=== PATIENT | male | born 1975 | race Caucasian/White ===

== ENCOUNTER → 2020-09-08 14:36 | Outpatient (BNVA) | payer SELFPAY | PROVIDERS: Visit Provider Registered Nurse Neonatal Intensive Care | DX: Z20.822 Contact with and (suspected) exposure to COVID-19 (principal); J06.9 Acute upper respiratory infection, unspecified | CPT/HCPCS: 87635 ==

== ENCOUNTER 2021-08-02 13:00 | Emergency (ER) | payer SELFPAY ==
[2021-08-02 13:10] VITALS: BP 177/114; PULSE 114; RESP 18; TEMP 36.4; O2SAT 97; BMI 40.4
--- NOTE | 2021-08-02 14:07 | XR_ITS ---
WS: [id number] Exam: XR chest 1V portable [id number] Date/Time of Exam: 08/02/2021 2:10 PM Reason For Exam: chest pain No priors. Findings: The lungs are clear and fully expanded. Costophrenic angles are sharp. No infiltrates. Bronchovascula r relief appears normal. Cardiac silhouette is unremarkable. Bony elements are intact. XR/XR chest 1V portable [id number] IMPRESSION: Unremarkable chest radiograph.
--- NOTE | 2021-08-02 14:07 | ECG_ITS ---
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 Measurements Intervals [place] Rate: 114 P: 41 NE: 165 QRS: 93 QRSD: 94 T: 36 QT: 321 QTc: 443 Interpretive Statements SINUS TACHYCARDIA BORDERLINE RIGHT AXIS DEVIATION [QRS AXIS > 90] PATTERN CONSISTENT WITH PULMONARY DISEASE INTERPRETATION BASED ON A DEFAULT AGE OF 40 YEARS No previous ECG available for comparison Electronically Signed On 08-02-2021 22:29:02 CDT by Bossman Ellis M.D. [id number] f
--- NOTE | 2021-08-02 15:12 | ED_ITS ---
HPI - Chest Pain General: Chief Complaint: Chest Pain Stated Complaint: Sharp abd pain, arm and leg cramps Time Seen by Provider: 08/02/21 14:22 PFSH ED PFSH: Social History Smoking and tobacco status: current every day smoker (chew) Course Vital Signs: Vital signs: Vital Signs Temperature 97.5 F L 08/02/21 13:10 Pulse Rate 114 H 08/02/21 13:10 Respiratory Rate 18 08/02/21 13:10 Blood Pressure 177/114 08/02/21 13:10 Pulse Oximetry 97 08/02/21 13:10 MDM - Chest Pain Lab Data Radiology Impressions Chest X-Ray 08/02/21 14:07 IMPRESSION: Unremarkable chest radiograph. 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
[2021-08-02 15:22] VITALS: RESP 20
[2021-08-02] MEDS: morphine 4 mg/mL SDV 1 mL IVP ×2 (15:22→19:41)
[2021-08-02] MEDS: sodium chloride 0.9% 1,000 ML 999 ML IV (15:23)
[2021-08-02 15:31] LABS: Basophils # 0.1 10^3/uL (0.0-0.1); Basophils % 0.7 %; Eosinophils # 0.1 10^3/uL (0.0-0.8); Eosinophils % 1.1 %; Hematocrit 46.3 % (42.0-52.0); Hemoglobin 16.6 g/dL (11.7-16.6); Lymphocytes # 2.9 10^3/uL (0.8-4.8); Lymphocytes % 21.9 %; Mean Corpuscular HGB Conc 35.9 g/dL (30.0-36.0); Mean Corpuscular Volume 89.4 fl (80-94); Mean Platelet Volume 10.5 fL (7.4-10.4); Monocytes # 1.1 10^3/uL (0.2-0.9); Monocytes % 8.6 %; Neutrophils # 8.77 10^3/uL (1.8-7.7); Nucleated Red Blood Cells % 0 %; Platelet Count 372 10^3/cmm (130-400); Red Blood Count 5.18 10^6/uL (4.1-5.3); Red Cell Distribution Width 13.4 % (12.1-15.1); White Blood Count 13.1 10^3/uL (4.0-10.0)
[2021-08-02 15:43] LABS: Troponin(5th) Baseline 10 ng/L (0-15)
--- NOTE | 2021-08-02 15:56 | W.ED.GENADLT ---
HPI - General Adult General: Chief complaint: Chest Pain Stated complaint: Sharp abd pain, arm and leg cramps Time Seen by Provider: 08/02/21 14:22 History of Present Illness: Patient is a 46-year-old male with no significant past medical history presents emergency room with abdominal cramps and leg cramps. Patient states that yesterday afternoon of 3-4pm he began having upper abdominal cramps lasting for an hour at a time. In addition, patient also reports bilateral thigh cramps lasting for similar period of time. Patient had additional 4 episodes of upper abdominal cramps relating to the lower abdomen. Patient denies any associated nausea/vomiting fever/chills, diarrhea melena/hematochezia. Patient has no prior history of kidney stones, denies any other or testicular complaints at this time. Patient denies any prior abdominal surgeries, cough, runny nose, or sore throat. Earlier today, patient was seen and evaluated at a primary care facility and was told to come to the emergency room for evaluation of his heart. Patient denies any exertional chest pain, short shortness of breath, pleuritic chest pain, leg swelling, fever or chills. Onset: 1 day ago Duration:1 day Location:home Severity:moderate Associated symptoms: Deny chest pain, dyspnea, nausea, rash, palpitations or vomiting Review of Systems Const: Denies: fever(s) or chills Eyes: Denies: change in vision ENMT: Denies: mouth pain Card: Denies: chest pain or palpitations Resp: Denies: dyspnea or non-productive cough GI: Reports: abdominal pain (+abdominal cramps); Denies: nausea, vomiting or diarrhea : Denies: dysuria Musc: Denies: extremity pain Skin/Breast: Denies: rash or new lesions Neuro: Denies: weakness in extremities Psych: Reports: other (Normal mood) Sung/Lymph: Denies: easy bruising PFSH ED PFSH: Social History Smoking and tobacco status: current every day smoker (chew) Physical Exam Const: COMMON NORMALS: alert HENMT: COMMON NORMALS: atraumatic HEAD & SCALP: atraumatic MOUTH: moist mucous membranes not abnormal Eye: COMMON NORMALS: EOMs intact bilaterally and conjunctivae normal CONJUNCTIVA: Yes conjunctivae normal Neck/C-Spine: COMMON NORMALS: full ROM and supple Resp: COMMON NORMALS: normal respiratory effort and clear to auscultation bilaterally AUSCULTATION: clear to auscultation bilaterally Cardio: COMMON NORMALS: regular rate RATE: regular rate GI: COMMON NORMALS: Soft to palpation and non-tender PALPATION: Yes Soft to palpation OTHER: No focal TTP. NO guarding rebound, guarding, rigidity. No CVA tenderness to percussion. Neg Tracey/Neg McBurney's point tenderness, no suprabupic tenderness to palpation. Extremity: COMMON NORMALS: full ROM Neuro: SENSORIUM/ORIENTATION: Yes alert MOTOR EXAM: No Abnormal motor strength present and Other motor observations present (no focal motor deficits) Psych: COMMON NORMALS: speech normal SPEECH: Yes normal speech MOOD & AFFECT: Yes euthymic mood Course Vital Signs: Vital signs: Vital Signs Temperature 97.5 F L 08/02/21 13:10 Pulse Rate 95 08/02/21 18:12 Respiratory Rate 16 08/02/21 19:41 Blood Pressure 120/88 08/02/21 18:12 Pulse Oximetry 95 08/02/21 18:12 MDM - General Adult Medical Decision Making 46-year-old male presents emergency room with abdominal cramps and leg cramps intermittently. Patient had episode of abdominal pain lasting for for 5 minutes in the emergency room while observed. Shortly after, patient has no focal pain. On exam, patient has focal focal tenderness palpation. No guarding or rebound tenderness. White count 13.[address] abdomen pelvis showed umbilical umbilical hernia with bowel containing bowel. At the present time, patient has no focal abdominal tenderness to palpation or palpable hernia. At the present time, do not suspect acute strangulation or incarceration. Patient received IVF and morphine reports pain is significant improved. Currently patient denies any pain. I discussed case with Dr. Smith who agrees that this is symptomatic hernia at this point and recommended close follow tomorrow or the following day. I have given patient Dr. Smith's clinic information for close followup. I have given patient follow up with our employment case manager to be seen by our outpatient general surgery. Patient aware of a call from our employment case manager to schedule for appointment(s) and verbalizes understanding of the importance of following up. Rx tylenol PRN pain Disposition: Discharge. Patient counseled regarding diagnostic impression, treatment plan. Patient given ED strict return precautions to return for continuation, worsening, or development of new symptoms. Instructed to f/u w/ General surgery regarding symptoms today. Patient verbalized understanding. She is given strict return precaution for any signs of bowel incarceration in the future. Lab Data : 08/02/21 15:10 08/02/21 15:10 Radiology Impressions Chest X-Ray 08/02/21 14:07 IMPRESSION: Unremarkable chest radiograph. Abdomen/Pelvis CT 08/02/21 16:09 IMPRESSION: 1. Markedly severe fatty infiltration of the liver measuring minus three Hounsfield units. 2. Umbilical/periumbilical hernia containing a loop of small bowel and fat. Correlation with pain in the region of the umbilicus is recommended. There is a small hernia neck with no obvious inflammation, however incarceration cannot be ruled out. Laboratory Results WBC 13.1 10^3/uL (4.0-10.0) H 08/02/21 15:10 RBC 5.18 10^6/uL (4.1-5.3) 08/02/21 15:10 Hgb 16.6 g/dL (11.7-16.6) 08/02/21 15:10 Hct 46.3 % (42.0-52.0) 08/02/21 15:10 MCV 89.4 fl (80-94) 08/02/21 15:10 MCH 32.0 pg (28.0-34.0) 08/02/21 15:10 MCHC 35.9 g/dL (30.0-36.0) 08/02/21 15:10 RDW 13.4 % (12.1-15.1) 08/02/21 15:10 Plt Count 372 10^3/cmm (130-400) 08/02/21 15:10 MPV 10.5 fL (7.4-10.4) H 08/02/21 15:10 Neut % (Auto) 67.0 % 08/02/21 15:10 Lymph % (Auto) 21.9 % 08/02/21 15:10 [place] % (Auto) 8.6 % 08/02/21 15:10 Eos % (Auto) 1.1 % 08/02/21 15:10 Baso % (Auto) 0.7 % 08/02/21 15:10 Neut # (Auto) 8.77 10^3/uL (1.8-7.7) H 08/02/21 15:10 Lymph # (Auto) 2.9 10^3/uL (0.8-4.8) 08/02/21 15:10 [place] # (Auto) 1.1 10^3/uL (0.2-0.9) H 08/02/21 15:10 Eos # (Auto) 0.1 10^3/uL (0.0-0.8) 08/02/21 15:10 Baso # (Auto) 0.1 10^3/uL (0.0-0.1) 08/02/21 15:10 Nucleated RBC % (auto) 0 % 08/02/21 15:10 Nucleated RBCs # 0.0 /100WBC 08/02/21 15:10 Sodium 133 mmol/L (136-145) L 08/02/21 15:10 Potassium 4.2 mmol/L (3.5-5.1) 08/02/21 15:10 Chloride 94 mmol/L (98-107) L 08/02/21 15:10 Carbon Dioxide 20 mmol/L (22-29) L 08/02/21 15:10 Anion Gap 23.2 (5-19) H 08/02/21 15:10 BUN 20 mg/dL (6-20) 08/02/21 15:10 Creatinine 1.1 mg/dL (0.7-1.2) 08/02/21 15:10 GFR Calculation 72.7 mL/min (90-130) L 08/02/21 15:10 Glucose 193 mg/dL (65-115) H 08/02/21 15:10 Calculated Osmolality 284 mOsm/kg (285-295) L 08/02/21 15:10 Calcium 10.1 mg/dL (8.5-10.5) 08/02/21 15:10 Total Bilirubin 1.1 mg/dL (0.15-1.2) 08/02/21 15:10 AST 29 U/L (0-40) 08/02/21 15:10 ALT 36 U/L (0-41) 08/02/21 15:10 Alkaline Phosphatase 141 IU/L (40-130) H 08/02/21 15:10 Troponin T Baseline 10 ng/L (0-15) 08/02/21 15:10 Troponin T 120 Minute 8.55 ng/L (0-15) 08/02/21 17:12 Delta Troponin T 1.22 ABS# (0-10) 08/02/21 17:12 Total Protein 8.8 g/dL (6.6-8.7) H 08/02/21 15:10 Albumin 5.2 g/dL (3.5-5.2) 08/02/21 15:10 Globulin 3.6 g/dL (1.3-4.6) 08/02/21 15:10 Lipase 27 U/L (13-60) 08/02/21 15:10 Urine Color Yellow (Yellow) 08/02/21 19:09 Urine Appearance Clear (CLEAR) 08/02/21 19:09 Urine pH 5 (5-7) 08/02/21 19:09 Ur Specific [place] 1.030 (1.005-1.030) 08/02/21 19:09 Urine Protein 3+ (Negative) H 08/02/21 19:09 Urine Glucose (UA) 1+ (Normal) H 08/02/21 19:09 Urine Ketones Negative (Negative) 08/02/21 19:09 Urine Blood 2+ (Negative) H 08/02/21 19:09 Urine Nitrate Negative (Negative) 08/02/21 19:09 Urine Bilirubin Neg (Negative) 08/02/21 19:09 Urine Urobilinogen Norm mg/dL (Negative) 08/02/21 19:09 Ur Leukocyte Esterase Negative (Negative) 08/02/21 19:09 Urine RBC 0-4 /hpf (0-2) H 08/02/21 19:09 Urine WBC 0-4 /hpf (0-5) H 08/02/21 19:09 Ur Squamous Epith Cells 0-4 /hpf (0-5) H 08/02/21 19:09 Amorphous Sediment Not Reportable 08/02/21 19:09 Urine Bacteria Trace /hpf (NONE) 08/02/21 19:09 Hyaline Casts 5-10 /lpf H 08/02/21 19:09 Imaging Data Other Imaging: Radiologist's impression: [address] [place] [address] XRay Report Signed Patient: Yariel Fernandez Unit #: [id number] : 1975 Age/Sex: 46 / M ADM Date: 08/02/21 Loc: ER Room/Bed: Attending Dr: Ordering Provider/Ordering MD: Dorian Juarez MD Date of Service: 08/02/21 Procedure(s): XR chest 1V portable [id number] Accession Number(s): [id number] Report Number: [id number] WS: [id number] Exam: XR chest 1V portable [id number] Date/Time of Exam: 08/02/2021 2:10 PM Reason For Exam: chest pain No priors. Findings: The lungs are clear and fully expanded. Costophrenic angles are sharp. No infiltrates. Bronchovascular relief appears normal. Cardiac silhouette is unremarkable. Bony elements are intact. ? XR/XR chest 1V portable [id number] IMPRESSION: Unremarkable chest radiograph. ? ? Dictated By: Caleb Eddy DO Signed By: Caleb Eddy DO Signed Date/Time: 08/02/21 1416 DD/ [address] [place] [address] CT Scan Report Signed Patient: Yariel Fernandez Unit #: [id number] : 1975 Age/Sex: 46 / M ADM Date: 08/02/21 Loc: ER Room/Bed: Attending Dr: Ordering Provider/Ordering MD: Dorian Juarez MD Date of Service: 08/02/21 Procedure(s): CT abdomen pelvis wo con [id number] Accession Number(s): [id number] Report Number: [id number] PROCEDURE INFORMATION: Exam: CT Abdomen And Pelvis Without Contrast Exam date and time: 08/02/2021 5:48 PM Age: 46 years old Clinical indication: Abdominal pain; Additional info: Abd pain TECHNIQUE: Imaging protocol: Computed tomography of the abdomen and pelvis without contrast. Radiation optimization: All CT scans at this facility use at least one of these dose optimization techniques: automated exposure control; mA and/or kV adjustment per patient size (includes targeted exams where dose is matched to clinical indication); or iterative reconstruction. COMPARISON: CR XR pelvis 1-2V* [id number] 02/14/2021 12:31 PM RADIATION DOSE METRICS: Total DLP (mGy-cm): 2227.04 FINDINGS: Liver: Markedly severe fatty infiltration of the liver measuring minus three Hounsfield units. Gallbladder and bile ducts: Normal. No calcified stones. No ductal dilation. Pancreas: Normal. No ductal dilation. Spleen: Normal. No splenomegaly. Adrenal glands: Normal. No mass. Kidneys and ureters: Normal. No hydronephrosis. Stomach and bowel: Unremarkable. No obstruction. No mucosal thickening. Appendix: No evidence of appendicitis. Intraperitoneal space: Unremarkable. No free air. No significant fluid collection. Vasculature: Unremarkable. No abdominal aortic aneurysm. Lymph nodes: Unremarkable. No enlarged lymph nodes. Urinary bladder: Unremarkable as visualized. Reproductive: Unremarkable as visualized. Bones/joints: Levoscoliosis. Soft tissues: Umbilical/periumbilical hernia containing a loop of small bowel and fat. Correlation with pain in the region of the umbilicus is recommended. There is a small hernia neck with no obvious inflammation, however incarceration cannot be ruled out. CT/CT abdomen pelvis wo con [id number] IMPRESSION: 1. Markedly severe fatty infiltration of the liver measuring minus three Hounsfield units. 2. Umbilical/periumbilical hernia containing a loop of small bowel and fat. Correlation with pain in the region of the umbilicus is recommended. There is a small hernia neck with no obvious inflammation, however incarceration cannot be ruled out. ? Dictated By: Jacky Bautista MD Signed By: Jacky Bautista MD Signed Date/Time: 08/02/21 190 DD/ 6018 Discharge Plan Discharge Patient Disposition: Home Clinical Impression: Abdominal pain, Hernia, umbilical Condition: Stable Prescriptions: New acetaminophen 500 mg tablet 500 mg PO Q6H PRN (Reason: pain) 5 Days Qty: 20 0RF Discharge Orders: Discharge ED (Routine); Ordered 08/02/21 Ordered By: Dorian Juarez Discharge Diet: Advance as tolerated Discharge Activity: Increase activity as tolerated Patient Instructions: Umbilical Hernia (ED), Abdominal Pain (ED) Activity Restrictions/Additional Instructions: Our employment case manager will have you follow-up with Dr. Smith in the next few days. You would be expected to have a phone call with our employment case manager who will put you on the schedule. You can expect a call from us in the next 2-3 days. If you don't hear from us, call us back in the emergency room at [phone]. Please come back if you have any worsening abdominal pain, fever or chills, nausea or vomiting, diarrhea, blood in the stool, inability hold down liquid or solids, or any new concerning complaints. Please come back if you notice any hernia around her umbilicus that you are not able to push back in. 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
--- NOTE | 2021-08-02 16:07 | ECG_ITS ---
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 Measurements Intervals [place] Rate: 128 P: 46 RI: 156 QRS: 87 QRSD: 94 T: 40 QT: 304 QTc: 444 Interpretive Statements SINUS TACHYCARDIA ABNORMAL RHYTHM ECG Compared to ECG 08/02/2021 13:17:42 No significant changes Electronically Signed On 08-02-2021 22:37:08 CDT by Bossman Ellis M.D. [id number]
--- NOTE | 2021-08-02 16:09 | CTR_ITS ---
PROCEDURE INFORMATION: Exam: CT Abdomen And Pelvis Without Contrast Exam date and time: 08/02/2021 5:48 PM Age: 46 years old Clinical indication: Abdominal pain; Additional info: Abd pain TECHNIQUE: Imaging protocol: Computed tomography of the abdomen and pelvis without contrast. Radiation optimization: All CT scans at this facility use at least one of these dose optimization techniques: automated exposure control; mA and/or kV adjustment per patient size (includes targeted exams where dose is matched to clinical indication); or iterative reconstruction. COMPARISON: CR XR pelvis 1-2V* [id number] 02/14/2021 12:31 PM RADIATION DOSE METRICS: Total DLP (mGy-cm): 2227.04 FINDINGS: Liver: Markedly severe fatty infiltration of the liver measuring minus three Hounsfield units. Gallbladder and bile ducts: Normal. No calcified stones. No ductal dilation. Pancreas: Normal. No ductal dilation. Spleen: Normal. No splenomegaly. Adrenal glands: Normal. No mass. Kidneys and ureters: Normal. No hydronephrosis. Stomach and bowel: Unremarkable. No obstruction. No mucosal thickening. Appendix: No evidence of appendicitis. Intraperitoneal space: Unremarkable. No free air. No significant fluid collection. Vasculature: Unremarkable. No abdominal aortic aneurysm. Lymph nodes: Unremarkable. No enlarged lymph nodes. Urinary bladder: Unremarkable as visualized. Reproductive: Unremarkable as visualized. Bones/joints: Levoscoliosis. Soft tissues: Umbilical/periumbilical hernia containing a loop of small bowel and fat. Correlation with pain in the region of the umbilicus is recommended. There is a small hernia neck with no obvious inflammation, however incarceration cannot be ruled out. CT/CT abdomen pelvis con [id number] IMPRESSION: 1. Markedly severe fatty infiltration of the liver measuring minus three Hounsfield units. 2. Umbilical/periumbilical hernia containing a loop of small bowel and fat. Correlation with pain in the region of the umbilicus is recommended. There is a small hernia neck with no obvious inflammation, however incarceration cannot be ruled out.
[2021-08-02 17:48] LABS: Troponin 5 2HR 8.55 ng/L (0-15)
[2021-08-02 18:12] VITALS: BP 120/88; PULSE 95; RESP 16; O2SAT 95
[2021-08-02 18:19] LABS: Troponin 5 2HR Delta 1.22 ABS# (0-10)
[2021-08-02 18:21] LABS: Alanine Aminotransferase 36 U/L (0-41); Albumin Level 5.2 g/dL (3.5-5.2); Alkaline Phosphatase 141 IU/L (40-130); Anion Gap 23.2 (5-19); Aspartate Amino Transferase 29 U/L (0-40); Blood Urea Nitrogen 20 mg/dL (6-20); Calcium 10.1 mg/dL (8.5-10.5); Carbon Dioxide 20 mmol/L (22-29); Chloride 94 mmol/L (98-107); Globulin 3.6 g/dL (1.3-4.6); Glomerular Filtration Rate 72.7 mL/min (90-130); Glucose 193 mg/dL (65-115); Lipase 27 U/L (13-60); Osmolality Calculated 284 mOsm/kg (285-295); Potassium 4.2 mmol/L (3.5-5.1); Sodium 133 mmol/L (136-145); Total Bilirubin 1.1 mg/dL (0.15-1.2); Total Protein 8.8 g/dL (6.6-8.7)
[2021-08-02 19:41] VITALS: RESP 16
[2021-08-02 19:55] LABS: Add Urine Microscopic? YES; Bilirubin Urine Neg (Negative); Blood Urine 2+ (Negative); Glucose Urine UA 1+ (Normal); Ketones Urine Negative (Negative); Leukocyte Esterase Urine Negative (Negative); Nitrate Urine Negative (Negative); Protein Urine 3+ (Negative); Urine Appearance Clear (CLEAR); Urine Color Yellow (Yellow); Urobilinogen Urine Norm (Negative); pH Urine 5 (5-7)
[2021-08-02 19:56] LABS: Bacteria Urine TRACE /hpf; RBC Urine 0-4 /hpf (0-2); Squamous Epithelial Cell Urine 0-4 /hpf (0-5); WBC Urine 0-4 /hpf (0-5)
[2021-08-02 19:57] LABS: Add Urine Culture? No
--- NOTE | 2021-08-02 20:07 | ECG_ITS ---
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 Measurements Intervals [place] Rate: 92 P: 49 NC: 175 QRS: 75 QRSD: 96 T: 48 QT: 359 QTc: 446 Interpretive Statements SINUS RHYTHM Compared to ECG 08/02/2021 15:00:54 Sinus tachycardia no longer present Electronically Signed On 08-02-2021 22:37:46 CDT by Bossman Ellis M.D. [email or web address]/[id number]
[2021-08-02 20:09] VITALS: BP 135/94; PULSE 100; RESP 16; O2SAT 95
--- NOTE | 2021-08-03 09:39 | PC.SOCIAL ---
Addendum entered by Patricia Nixon 08/26/21 15:33: Patient had a follow up appointment scheduled for 08.10.[address] Smith with general surgery - patient did attend appointment. Original Note: Follow Up with Dr. Smith Message sent to General surgery requesting follow up with Dr. Smith for umbilical hernia. Office will call patient with appointment.
== END 2021-08-02 20:10 | disposition home or self-care (01) ==
PROVIDERS: Emergency Provider Emergency Medicine
DX: K42.9 Umbilical hernia without obstruction or gangrene (principal); F17.220 Nicotine dependence, chewing tobacco, uncomplicated
CPT/HCPCS: 36415; 71045; 74176; 80053; 81001; 83690; 84484; 85025; 93005; 96361; 96374; 96376; 99285; J2270; J7030

== ENCOUNTER 2021-08-22 08:18 | Day surgery (SDC) | payer SELFPAY ==
[2021-08-19 16:02] VITALS: BMI 40.3
[2021-08-22 08:48] VITALS: BP 158/97; PULSE 77; RESP 18; TEMP 36.6; O2SAT 97
[2021-08-22] MEDS: acetaminophen 1,000 MG/100 ML PIGGYBACK 400 MG IV (08:57)
[2021-08-22] MEDS: heparin 5,000 unit/mL INJ 1 mL 5000 UNIT SUBCUT (08:58)
[2021-08-22] MEDS: sodium chloride 0.9% 1,000 ML 30 ML IV (08:58)
--- NOTE | 2021-08-22 09:56 | W.PM.OPSUD ---
Surgery/Procedure H&P Update DATE OF PROCEDURE: August 22, 2021 DATE H&P PERFORMED: 08/10/21 H&P UPDATE INFORMATION: I have reviewed H&P completed within last 30 days, I have examined patient prior to procedure and No changes to prior documentation PREOP DIAGNOSIS: Chronically incarcerated Umbilical hernia PRIMARY INDICATION FOR PROCEDURE: The same PLANNED PROCEDURE: Operation Date: 08/22/21 09:50 Proposed Procedures p HERNIA-UMBILICAL HERNIA REPAIR OPEN WITH POSSIBLE MESH 96910,K42.9(Not Applicable) - Arthur Smith MD
--- NOTE | 2021-08-22 10:17 | ANES.PREANE2 ---
Pre-Anesthetic Assessment Height/Weight: Height 1.75 m Weight 123.831 kg Temp Pulse Resp BP Pulse Ox 97.8 F 77 18 158/97 97 08/22/21 08:48 08/22/21 08:48 08/22/21 08:48 08/22/21 08:48 08/22/21 08:48 Preop Diagnosis: Chronically incarcerated Umbilical hernia Operation Date: 08/22/21 09:50 Proposed Procedures p HERNIA-UMBILICAL HERNIA REPAIR OPEN WITH POSSIBLE MESH 23618,K42.9(Not Applicable) - Arthur Smith MD Familial anesthetic complications: None Was Beta Kimber taken within 24 hours: N/A Was Clonidine taken within 24 hours: N/A Last intake: Intake Last Liquid Date 08/21/21 Last Liquid Time 17:00 Last Solid Date 08/21/21 Last Solid Time 17:00 Social No alcohol and No tobacco Exam alert, oriented x 3, clear to auscultation bilaterally and regular rate & rhythm Airway Submandibular: within normal limits Cervical ROM: within normal limits Mallampati: Class III Dentition: full Pulmonary None reported CV/HEM None reported METS > 4 None reported Hepatic None reported GI Umbilical hernia Metabolic Morbid Obesity [facility] None reported Neuropsych None reported Anesthetic Plan ASA status: 2 Anesthesia: Anesthesia Evaluation and General Other: I discussed with patient and his sister risk and benefits of general anesthesia including PONV, sore throat (sometimes severe), corneal abrasion, positioning and peripheral nerve injuries, life threatening allergic reaction, post operative ICU admission requiring prolonged intubation, aspiration, stroke, heart attack, , and rare incidences of recall. Patient consents to proceed with general anesthesia. Risk of > 500 ml blood loss (7ml/kg in children): No Medications/Allergies Home Medications Medication Instructions Recorded Confirmed Last Taken Type acetaminophen 500 mg tablet 500 mg PO BID PRN tab 08/10/21 08/22/21 08/19/21 History (Tylenol Extra Strength) Allergies Allergy/AdvReac Type Severity Reaction Status Date / Time No Known Allergies Allergy Verified 08/22/21 08:42 Current Medications Generic Name Dose Route Start Last Admin Trade Name Freq PRN Reason Stop Dose Admin Sodium Chloride 1,000 mls @ 30 mls/hr 08/22/21 08:30 08/22/21 08:58 Sodium Chloride 0.9% IV 08/23/21 08:29 30 mls/hr .Q24H BARRY Administration PFSH Anesthesia Medical History Umbilical hernia Family History Grandmother Cancer Mother Diabetes Social History Smoking and tobacco status: current every day smoker Data Anesthesia Cardiac Studies: No Data to Display
[2021-08-22] MEDS: ceFAZolin 2,000 MG in sodium chloride 0.9% (plus) 50 ML 100 MG IV (10:18)
[2021-08-22] MEDS: lidocaine 2% INJ 20 mL INJECTION (10:52)
--- NOTE | 2021-08-22 11:15 | PM.OP ---
Operative Report Date of procedure: August 22, 2021 Pre-op diagnosis: Preop Diagnosis Chronically incarcerated Umbilical hernia Post-op diagnosis: Same Post-op findings: Fascial defect containing preperitoneal fat and viable bowel loop, less than 1 inch in diameter Procedure done: Open umbilical hernia repair with primary repair Specimens removed/disposition: Hernia sac and contents Surgeon: Arthur Smith MD Surface Hydrologist: Surgical techmike Blackwood and Deonna Circulating nurse Lillie Anesthesia: General (UTE Calder[facility]) Estimated blood loss (mL): 10 IV fluids (mL): 900 Procedure: Patient was identified in holding area and the site of the hernia was marked by me ,Patient was brought then to the operating room, general endotracheal anesthesia was administered by the anesthesia provider.prophylactic IV antibiotics were given per protocol Timeout was done verifying the patient's name/date of /planned procedure and destination after the procedure, all were in agreement. SCDs confirmed to be functioning, preoperative antibiotics administered per protocol, and beta nhan protocol was confirmed. Prep and drape of the abdomen was done under the usual sterile technique. I started by infraumbilical skin incision,and dissection was carried till the hernia sac was identified and opened,following that trimming of the edges and excising the sac,were sac and contents were sent for pathology.At that point the fascial defect is about inch in diameter.Viable bowels were noticed,, after freeing all the adhesions and freeing the overlying fat on top of the fascia,to facilitate primary closure, under direct visualization I was able to use #1 PDS to close the defect primarily, as an interrupted Figure of 8 sutures,copious and through irrigation of the wound was then achieved and hemostasis. Following that a 2/0 Vicryl running,continiuos deep subdermal stitch was placed,followed by 3-0 Vicryl,then 4-0 Monocryl was used for subcuticular closure of the skin incision. Lidocaine 2% was used for local infiltration.Surical glue was then applied.Followed by appropraie size Abdominal Binder. Counts of sponges,needles and instruments were completed at the end of the procedure and specimen was verified. Patient tolerated the procedure well and was taken to the recovery area in stable condition after Extubation I was present for the whole entire procedure
[2021-08-22 11:30] VITALS: BP 199/118; PULSE 94; RESP 18; O2SAT 95
[2021-08-22] MEDS: labetalol 5 mg/mL SDV 20mL IVP (11:33)
[2021-08-22 11:36] VITALS: BP 153/110; PULSE 95; RESP 18; O2SAT 96
[2021-08-22 11:40] VITALS: BP 140/80; PULSE 92; RESP 18; O2SAT 96
[2021-08-22 11:45] VITALS: BP 132/81; BP 138/69; PULSE 79; PULSE 85; RESP 18; TEMP 36.2; O2SAT 94; O2SAT 96
[2021-08-22 12:25] VITALS: BP 124/75; PULSE 79; RESP 18; O2SAT 96
[2021-08-22] MEDS: HYDROcodone-acetaminophen 5-325 mg Tablet 1 TAB PO (12:27)
--- NOTE | 2021-08-22 14:20 | ANE.PACU2 ---
Inpatient post-anesthesia follow up: Airway intact: Yes Vital signs: Temperature 97.2 F Pulse Rate 79 Respiratory Rate 18 Blood Pressure 124/75 Pulse Oximetry 96 Oxygen Delivery Me thod Room Air Oxygen Flow Rate 5 Fraction of Inspir ed Oxygen Hydration adequate: Yes Nausea and vomiting: No Pain level: 1 Mental status: Baseline
== END 2021-08-22 12:38 | disposition home or self-care (01) ==
PROVIDERS: Visit Provider Surgery
PROC: (CPT 49587; principal; 2021-08-22 09:50)
DX: K42.0 Umbilical hernia with obstruction, without gangrene (principal); E66.01 Morbid (severe) obesity due to excess calories; Z68.41 Body mass index [BMI] 40.0-44.9, adult; F17.210 Nicotine dependence, cigarettes, uncomplicated
CPT/HCPCS: 49587; 88302; J1100; J1644; J2250; J2405; J2704; J3010; J3490; J7030

== ENCOUNTER 2023-11-26 19:46 | Emergency (ER) | payer SELFPAY ==
[2023-11-26 20:16] VITALS: BP 184/115; PULSE 94; RESP 18; TEMP 36.6; O2SAT 94; BMI 32.5
[2023-11-26 20:20] LABS: Basophils # 0.1 10^3/uL (0.0-0.1); Basophils % 0.5 %; Eosinophils # 0.3 10^3/uL (0.0-0.8); Eosinophils % 2.7 %; Hematocrit 45.7 % (37-53); Lymphocytes # 1.8 10^3/uL (0.8-4.8); Lymphocytes % 16.6 %; Mean Corpuscular HGB Conc 34.6 g/dL (30-55); Mean Corpuscular Hemoglobin 31.5 pg (27-33); Mean Platelet Volume 9.4 fL (7.4-10.4); Monocytes # 0.5 10^3/uL (0.2-0.9); Neutrophils # 7.97 10^3/uL (1.8-7.7); Neutrophils % 74.9 %; Nucleated Red Blood Cells % 0 %; Platelet Count 299 10^3/cmm (157-399); Red Blood Count 5.02 10^6/uL (3.85-5.65); Red Cell Distribution Width 12.6 % (12.1-15.1); White Blood Count 10.64 10^3/uL (3.29-11.43)
--- NOTE | 2023-11-26 20:21 | ED_ITS ---
HPI - Male Genitourinary 2 General: Chief complaint: Urogenital-Male Stated complaint: peeing blood Time Seen by Provider: 11/26/23 19:53 Source: patient Mode of arrival: ambulatory Limitations: no limitations History of Present Illness: Patient is a 48-year-old male who presents to the emergency department complaining of hematuria beginning today. States he has had 3 episodes of gross blood, no significant pain though states intermittently he will sometimes have some suprapubic pain. Denies any pertinent past medical history. Does not take any medications. Denies history of kidney stones. He is not having any back pain, fever, nausea or vomiting, chills, or other symptoms to report. MD Complaint: other (hematuria) Associated symptoms: Reports hematuria; Deny dysuria, nausea or vomiting Related Data Home Medications Medication Instructions Recorded Confirmed acetaminophen 500 mg tablet 500 mg PO BID PRN Pain, Mild 08/10/21 09/02/21 (Tylenol Extra Strength) Previous Rx's Medication Instructions Recorded hydrocodone 5 mg-acetaminophen 325 1 tab PO Q6H PRN pain #28 tabs 08/22/21 mg tablet cefdinir 300 mg capsule 300 mg PO BID 10 days #20 caps 11/26/23 Allergies Allergy/AdvReac Type Severity Reaction Status Date / Time No Known Allergies Allergy Verified 11/26/23 20:18 Review of Systems 2 General: Reports: 10 or more systems reviewed and unremarkable except in HPI and below Const: Denies: fever(s), chills, change in appetite, change in weight or diaphoresis ENMT: Denies: throat pain or hoarseness Card: Denies: chest pain, palpitations or lightheadedness Resp: Denies: dyspnea, productive cough or wheezing GI: Reports: abdominal pain (Occasional suprapubic pain); Denies: nausea, vomiting, diarrhea, constipation, bloating, change in stool character or hematochezia : Reports: hematuria; Denies: flank pain, difficulty urinating, dysuria, urinary frequency or urinary urgency Musc: Denies: neck pain or back pain Skin/Breast: Denies: rash or new lesions Neuro: Denies: headache(s) or dizziness PFSH ED 2 PFSH: Medical History Umbilical hernia Surgical History H/O umbilical hernia repair Family History Grandmother Cancer Mother Diabetes Social History Smoking and tobacco/nicotine status: current every day tobacco/nicotine user Physical Exam 2 Const: COMMON NORMALS: no acute distress, average body habitus, patient oriented x3, no limitations, healthy appearing, alert and well nourished G ENERAL APPEARANCE: cooperative and comfortable ORIENTATION/CONSCIOUSNESS: Yes awake HENMT: COMMON NORMALS: normocephalic, atraumatic, hearing grossly normal bilaterally, external ears normal, Normal external nose present, Normal nasal mucous membranes and turbinates present and moist oral mucous membranes HEAD & SCALP: normocephalic and atraumatic NOSE: Normal external nose present and Normal nasal mucous membranes and turbinates present EXTERNAL EAR: Yes external ears normal Eye: COMMON NORMALS: Equal, round and reactive pupils present, EOMs intact bilaterally, conjunctivae normal and normal visual link by confrontation C ONJUNCTIVA: Yes conjunctivae normal PUPIL: Yes Equal, round and reactive pupils present Neck/C-Spine: COMMON NORMALS: full ROM, supple, no meningeal signs and no JVD Resp: COMMON NORMALS: normal respiratory effort, No retractions, No use of accessory muscles and clear to auscultation bilaterally AUSCULTATION: clear to auscultation bilaterally, no crackles, no rales, no rhonchi and no wheezes Cardio: COMMON NORMALS: no JVD, regular rate, regular rhythm, S1 normal heart sound present, S2 normal heart sound present, No gallops present (Cardio), No clicks present (Cardio), No murmurs present (Cardio), No rub (Cardio) and Peripheral pulses 2+ throughout RATE: regular rate RHYTHM: regular rhythm HEART SOUNDS: S1 normal heart sound present and S2 normal heart sound present PERIPHERAL PULSES: Peripheral pulses 2+ throughout GI: COMMON NORMALS: Normal to inspection, nondistended, normoactive bowel sounds present, Soft to palpation, non-tender, No hepatosplenomegaly present and no masses AUSCULTATION: Yes normoactive bowel sounds PALPATION: Yes Soft to palpation, No Guarding due to palpation present (GI), No Rigid due to palpation and Yes No hepatosplenomegaly present RECTAL EXAM: Yes deferred : COMMON NORMALS: Yes no CVA tenderness BLADDER/KIDNEY EXAM: Yes no CVA tenderness Back/Pelvis: COMMON NORMALS: no CVA tenderness Extremity: COMMON NORMALS: normal to inspection and full ROM Neuro: COMMON NORMALS: patient oriented x3, moves all extremities, no focal motor deficits and no sensory deficits noted SENSORIUM/ORIENTATION: Yes alert MENINGEAL SIGNS: Yes no meningeal signs Psych: COMMON NORMALS: mental status grossly normal, cooperative and speech normal SPEECH: Yes normal speech Skin: COMMON NORMALS: no rashes or lesions noted GENERAL SKIN EXAM: no rashes or lesions noted Course 2 Vital Signs: Vital signs: Vital Signs Temperature 97.9 F 11/26/23 20:16 Pulse Rate 87 11/26/23 22:34 Respiratory Rate 16 11/26/23 22:34 Blood Pressure 156/104 11/26/23 22:34 Pulse Oximetry 100 11/26/23 22:34 Oxygen Delivery Me thod Room Air 11/26/23 22:34 MDM - Male Medical Decision Making Patient presented with 3 episodes of hematuria beginning today. No pertinent past medical history to report. Was not reporting any pain, simply the episodes of hematuria. Urinalysis showed numerous red blood cells with bacteria as well as white blood cells. Rest of his blood work unremarkable, CT did not demonstrate any large mass, stones, or other concerning emergent findings for the bleeding. There was noted to be some bladder distention and this could simply be a hemorrhagic cystitis, however he will be referred to urology for further evaluation as if he continues to have bleeding he will need a cystoscopy. For infectious purposes we will start him on cefdinir and he is encouraged to increase his fluid intake. With any worsening of symptoms he is encouraged to return for reevaluation. Patient and family in the room agree with discharge at this time. Case discussed with Dr. Choi. Lab Data 11/26/23 20:10 11/26/23 20:10 Radiology Impressions Abdomen/Pelvis CT 11/26/23 20:42 IMPRESSION: 1. No evidence of residual or recurrent umbilical hernia. No inguinal hernia. 2. Postprandial gallbladder is not contracted. If there is clinical concern for gallbladder dyskinesia, consider nuclear medicine HIDA scan. 3. Large fatty liver. Laboratory Results WBC 10.64 10^3/uL (3.29-11.43) 11/26/23 20:10 RBC 5.02 10^6/uL (3.85-5.65) 11/26/23 20:10 Hgb 15.80 g/dL (11.27-16.99) 11/26/23 20:10 Hct 45.7 % (37-53) 11/26/23 20:10 MCV 91.0 fl (82-101) 11/26/23 20:10 MCH 31.5 pg (27-33) 11/26/23 20:10 MCHC 34.6 g/dL (30-55) 11/26/23 20:10 RDW 12.6 % (12.1-15.1) 11/26/23 20:10 Plt Count 299 10^3/cmm (157-399) 11/26/23 20:10 MPV 9.4 fL (7.4-10.4) 11/26/23 20:10 Neut % (Auto) 74.9 % 11/26/23 20:10 Lymph % (Auto) 16.6 % 11/26/23 20:10 Mora % (Auto) 5.0 % 11/26/23 20:10 Eos % (Auto) 2.7 % 11/26/23 20:10 Baso % (Auto) 0.5 % 11/26/23 20:10 Neut # (Auto) 7.97 10^3/uL (1.8-7.7) H 11/26/23 20:10 Lymph # (Auto) 1.8 10^3/uL (0.8-4.8) 11/26/23 20:10 Mora # (Auto) 0.5 10^3/uL (0.2-0.9) 11/26/23 20:10 Eos # (Auto) 0.3 10^3/uL (0.0-0.8) 11/26/23 20:10 Baso # (Auto) 0.1 10^3/uL (0.0-0.1) 11/26/23 20:10 Nucleated RBC % (auto) 0 % 11/26/23 20:10 Nucleated RBCs # 0.0 /100WBC 11/26/23 20:10 PT 13.30 SECONDS (12.1-14.9) 11/26/23 20:10 INR 0.98 (0.8-1.2) 11/26/23 20:10 Sodium 134 mmol/L (136-145) L 11/26/23 20:10 Potassium 3.8 mmol/L (3.5-5.1) 11/26/23 20:10 Chloride 97 mmol/L (98-107) L 11/26/23 20:10 Carbon Dioxide 24 mmol/L (22-29) 11/26/23 20:10 Anion Gap 16.8 (5-19) 11/26/23 20:10 BUN 13 mg/dL (6-20) 11/26/23 20:10 Creatinine 1.0 mg/dL (0.7-1.2) 11/26/23 20:10 GFR Calculation 80.4 mL/min (90-130) L 11/26/23 20:10 Glucose 210 mg/dL (65-115) H 11/26/23 20:10 Calculated Osmolality 284 mOsm/kg (285-295) L 11/26/23 20:10 Calcium 9.2 mg/dL (8.5-10.5) 11/26/23 20:10 Total Bilirubin 1.1 mg/dL (0.15-1.2) 11/26/23 20:10 AST 18 U/L (0-40) 11/26/23 20:10 ALT 27 U/L (0-41) 11/26/23 20:10 Alkaline Phosphatase 132 U/L (40-130) H 11/26/23 20:10 Total Protein 7.9 g/dL (6.6-8.7) 11/26/23 20:10 Albumin 4.7 g/dL (3.5-5.2) 11/26/23 20:10 Globulin 3.2 g/dL (1.3-4.6) 11/26/23 20:10 Urine Color Red (Yellow) A 11/26/23 19:45 Urine Appearance Cloudy (CLEAR) A 11/26/23 19:45 Urine pH Not Reportable 11/26/23 19:45 Ur Specific [place] Not Reportable 11/26/23 19:45 Urine Protein Not Reportable 11/26/23 19:45 Urine Glucose (UA) Not Reportable 11/26/23 19:45 Urine Ketones Not Reportable 11/26/23 19:45 Urine Blood Not Reportable 11/26/23 19:45 Urine Nitrate Not Reportable 11/26/23 19:45 Urine Bilirubin Not Reportable 11/26/23 19:45 Urine Urobilinogen Not Reportable 11/26/23 19:45 Ur Leukocyte Esterase Not Reportable 11/26/23 19:45 Urine RBC Too numerous to cnt /hpf (0-2) H 11/26/23 19:45 Urine WBC 25-40 /hpf (0-5) H 11/26/23 19:45 Ur Squamous Epith Cells None /hpf (0-5) 11/26/23 19:45 Amorphous Sediment Not Reportable 11/26/23 19:45 Urine Bacteria 1+ /hpf (NONE) H 11/26/23 19:45 All radiology interpretation(s) finalized by discharge Discharge Plan Discharge Patient Disposition: Home Clinical Impression: Acute hemorrhagic cystitis Condition: Stable Prescriptions: New cefdinir 300 mg capsule 300 mg PO BID 10 Days Qty: 20 0RF No Action acetaminophen [Tylenol Extra Strength] 500 mg tablet 500 mg PO BID PRN (Reason: Pain, Mild) hydrocodone-acetaminophen 5-325 mg tablet 1 tab PO Q6H PRN (Reason: pain) Qty: 28 0RF Discharge Orders: Discharge ED (Routine); Ordered 11/26/23 Ordered By: Scot Agarwal Discharge Diet: As Directed Patient Instructions: Hemorrhagic Cystitis Activity Restrictions/Additional Instructions: Drink plenty of fluids. Follow-up with urology as discussed. Antibiotics as prescribed. If you develop any severe worsening of symptoms, abdominal pain, vomiting, or other concerning symptoms please return for reevaluation. Coding Level of Care Code ED Floor Covering Installer for Craig Pacheco
[2023-11-26 20:30] LABS: INR 0.98 (0.8-1.2)
[2023-11-26 20:35] LABS: Add Urine Culture? Yes; Add Urine Microscopic? YES; Bacteria Urine 1+ /hpf; RBC Urine TOO NUMEROUS TO CNT /hpf (0-2); UA Manual Slide Review YES; UA Slide Review UA Slide Review Perf; Urine Appearance Cloudy (CLEAR); Urine Color Red (Yellow); WBC Urine 25-40 /hpf (0-5)
--- NOTE | 2023-11-26 20:42 | CTR_ITS ---
PROCEDURE INFORMATION: Exam: CT Abdomen And Pelvis With Contrast Exam date and time: 11/26/2023 8:53 PM Age: 48 years old Clinical indication: Other: Hematuria; Prior surgery; Surgery date: 6+ months; Surgery type: Hernia TECHNIQUE: Imaging protocol: Computed tomography of the abdomen and pelvis with contrast. Radiation optimization: All CT scans at this facility use at least one of these dose optimization techniques: automated exposure control; mA and/or kV adjustment per patient size (includes targeted exams where dose is matched to clinical indication); or iterative reconstruction. Contrast material: OMNI 350; Contrast volume: 100 ml; Contrast route: INTRAVENOUS (IV); COMPARISON: CT abdomen pelvis wo con [id number] 08/02/2021 5:48 PM RADIATION DOSE METRICS: Total DLP (mGy-cm): 1135 FINDINGS: Lungs: Clear basilar lung parenchyma. Pleural spaces: No pleural fluid. Heart: Normal heart size. Liver: Homogeneous low attenuation throughout the liver is compatible with fatty infiltration. Liver measures 25.7 cm in length. Gallbladder and biliary ducts: Postprandial gallbladder is not contracted. No biliary tree dilation. No gallbladder inflammatory change. Pancreas: Mild pancreatic atrophy without visible mass or edema. Spleen: Spleen measures 12.2 cm in length. Adrenal glands: Normal configuration. Kidneys and ureters: No evidence of obstruction. No visible inflammation. Stomach and bowel: Postprandial stomach. Normal caliber small bowel. Distal colonic diverticulosis without evidence of acute diverticulitis. Appendix: Normal appendix is confirmed. Intraperitoneal space: No free air. No significant fluid collection. Vasculature: Mild aortoiliac calcific atherosclerosis without aneurysm. Lymph nodes: No enlarged lymph nodes. Urinary bladder: Thick-walled urinary bladder is partly decompressed. Reproductive: Physiologic appearance for age. Bones/joints: No fracture or destructive lesion. Moderate bilateral hip arthropathy. Moderate facet arthropathy at L5-S1. Left worse than right sacroiliac osteoarthritis. Soft tissues: No evidence of residual or recurrent umbilical wall hernia. No evidence of inguinal hernia. CT/CT abdomen pelvis w con* [id number] IMPRESSION: 1. No evidence of residual or recurrent umbilical hernia. No inguinal hernia. 2. Postprandial gallbladder is not contracted. If there is clinical concern for gallbladder dyskinesia, consider nuclear medicine HIDA scan. 3. Large fatty liver.
[2023-11-26 20:49] LABS: Alanine Aminotransferase 27 U/L (0-41); Albumin Level 4.7 g/dL (3.5-5.2); Alkaline Phosphatase 132 U/L (40-130); Anion Gap 16.8 (5-19); Aspartate Amino Transferase 18 U/L (0-40); Blood Urea Nitrogen 13 mg/dL (6-20); Calcium 9.2 mg/dL (8.5-10.5); Carbon Dioxide 24 mmol/L (22-29); Chloride 97 mmol/L (98-107); Creatinine Clr Calc Pharmacy 107.4942; Globulin 3.2 g/dL (1.3-4.6); Glomerular Filtration Rate 80.4 mL/min (90-130); Glucose 210 mg/dL (65-115); Osmolality Calculated 284 mOsm/kg (285-295); Potassium 3.8 mmol/L (3.5-5.1); Sodium 134 mmol/L (136-145); Total Bilirubin 1.1 mg/dL (0.15-1.2); Total Protein 7.9 g/dL (6.6-8.7)
[2023-11-26] MEDS: iohexol 350 mg/mL 500 mL Btl (per mL) IV (20:56)
[2023-11-26 22:34] VITALS: BP 156/104; PULSE 87; RESP 16; O2SAT 100
[2023-11-26] MEDS: cefdinir 300 MG CAPSULE PO (22:52)
[2023-11-26 23:09] VITALS: BP 161/101; PULSE 87; RESP 16; O2SAT 100
--- NOTE | 2023-11-27 08:50 | DCPLANNER ---
Referral for Urology has been sent to - [facility] -
== END 2023-11-26 23:10 | disposition home or self-care (01) ==
PROVIDERS: Emergency Medicine; Emergency Provider Physician Assistant
DX: N30.01 Acute cystitis with hematuria (principal); Z72.0 Tobacco use
CPT/HCPCS: 36415; 74177; 80053; 81001; 85025; 85610; 87086; 99285

== ENCOUNTER 2023-12-21 13:25 | Outpatient (CLI) | payer SELFPAY ==
--- NOTE | 2023-12-21 13:37 | CT_ITS ---
WS: [id number] CT ABDOMEN AND PELVIS WITH AND WITHOUT CONTRAST HISTORY: GROSS HEMATURIA TECHNIQUE: Unenhanced 5 mm axial imaging first performed through the abdomen. Post contrast imaging t hrough the abdomen and pelvis. Oral contrast has been provided. Sagittal and coronal reformats are s ubmitted. All CT scans at [facility] use at least one of these dose optimization techniques: automated exposure control; mA and/or kV adjustment per patient size (includes targeted exams where d ose is matched to clinical indication); or iterative reconstruction. CONTRAST: Omnipaque 350; 95 mL IV. DLP: 2114.13 mGy.cm COMPARISON: 11/26/2023 Lung bases are clear. Subsegmental atelectasis in the lingula. Normal size heart. Small hiatal hernia . Moderate hepatic enlargement with diffuse hepatic steatosis. Normal portal vein. No mass. No bile pee t dilatation. Normal gallbladder, adrenal glands, pancreas and spleen. Normal aorta. Good enhancement of the mesenteric arteries. RIGHT kidney: Normal size kidney with no obstruction or calcification. Normal enhancement. LEFT kidney: No obstruction. No calcification. Normal enhancement. Urinary bladder: Normally distended bladder. No enhancing lesions identified within the bladder. Ther e are a few central prostate gland calcifications. No free fluid or adenopathy. No GI tract obstruction. Normal appendix. No ventral wall hernia. CT/CT abdomen pelvis wo/w [id number] IMPRESSION: 1. No renal mass, obstruction or calcification identified. 2. No enhancing lesions in the urinary bladder. 3. No GI tract obstruction. 4. Moderate hepatic steatosis and hepatomegaly.
[2023-12-21] MEDS: iohexol 350 mg/mL 500 mL Btl (per mL) IV (14:05)
[2023-12-21 14:54] LABS: Blood Urea Nitrogen 10 mg/dL (6-20); Prostate Specific Antigen 0.668 ng/mL (0-4)
== END 2023-12-21 13:26 | disposition home or self-care (01) ==
LOC: RAD 13:26
PROVIDERS: Visit Provider Nurse Practitioner Family
DX: R31.0 Gross hematuria (principal); J98.11 Atelectasis; K44.9 Diaphragmatic hernia without obstruction or gangrene; N42.0 Calculus of prostate; R16.0 Hepatomegaly, not elsewhere classified; K76.0 Fatty (change of) liver, not elsewhere classified
CPT/HCPCS: 36415; 74178; 82565; 84153; 84520